=== PATIENT | female | born 1970 | race Two or more races ===

== ENCOUNTER 2024-01-12 12:13 | Outpatient (CLI) | payer OTHER, SELFPAY ==
--- NOTE | ~2024-01-12 | MM_ITS ---
EXAMINATION: MM screening zita BI w kayleigh HISTORY: Screening TECHNIQUE: Craniocaudal and mediolateral oblique 3-D tomosynthesis images were obtained and synthetic 2-D images were generated. CAD analysis was submitted and interpreted. COMPARISON: No prior mammogram is available for comparison at this institution. BREAST PARENCHYMAL COMPOSITION: Not dense: There are scattered areas of fibroglandular density. FINDINGS: There are bilateral nodular asymmetries in both breasts. There are no suspicious calcificat ions or architectural distortion. IMPRESSION: 1. Bilateral breast asymmetries. 2. Additional mammographic views and possible breast ultrasound are recommended. BI-RADS Category 0: Incomplete: Needs additional imaging evaluation. Reviewed, dictated and finalized at location B. IMPRESSION: 1. Bilateral breast asymmetries. 2. Additional mammographic views and possible breast ultrasound are recommended . BI-RADS Category 0: Incomplete: Needs additional imaging evaluation.
== END 2024-01-12 12:14 ==
PROVIDERS: PCP Obstetrics & Gynecology Gynecology; Visit Provider Family Medicine
DX: Z12.31 Encounter for screening mammogram for malignant neoplasm of breast (principal); N64.89 Other specified disorders of breast
CPT/HCPCS: 77063; 77067

== ENCOUNTER 2024-08-10 09:25 | Outpatient (CLI) | payer OTHER, SELFPAY ==
--- NOTE | ~2024-08-10 | MMUS_ITS ---
EXAMINATION: MM diagnostic zita BI w kayleigh, US breast RT limited HISTORY: Six-month follow-up of right breast mass, left breast pain TECHNIQUE: 3-D tomosynthesis images of the breasts were performed and synthetic 2-D images were gener ated. CAD analysis was submitted and interpreted. High resolution limited right breast ultrasound was performed. COMPARISON: 02/02/2024, 01/12/2024 BREAST PARENCHYMAL COMPOSITION:Not Dense. There are scattered areas of fibroglandular density. FINDINGS: MAMMOGRAPHIC FINDINGS: Stable 6 mm ovoid mass at the lower, slightly outer right breast posteriorly. Stable parenchymal appe arance of the left breast, without suspicious mass or distortion. No suspicious microcalcification ei ther breast. ULTRASOUND: At the 8:00 position right breast, 8 cm from nipple, there is a 7 x 6 x 8 mm hypoechoic mass, circums cribed. No posterior shadowing. At the 6:00 position right breast, 3 cm, nipple, there is an 8 x 6 x 3 mm ovoid hypoechoic circumscribed mass, wider than tall. No posterior shadowing. IMPRESSION: Subcentimeter probable benign masses at the 8:00 position right breast and 6:00 position right breas t, as detailed above. Six-month follow-up ultrasound recommended to assure continued stability. BI-RADS category 3, probably benign findings. Reviewed, dictated and finalized at [facility]. . PAYROLL MANAGER IMPRESSION: Subcentimeter probable benign masses at the 8:00 position right breast and 6:0 0 position right breast, as detailed above. Six-month follow-up ultrasound sin mmended to assure continued stability. BI-RADS category 3, probably benign findings.
== END 2024-08-10 09:26 | disposition home or self-care (01) ==
LOC: MICIMG 09:26
PROVIDERS: PCP Family Medicine; Visit Provider Nurse Practitioner
DX: R92.8 Other abnormal and inconclusive findings on diagnostic imaging of breast (principal)
CPT/HCPCS: 76642; 77062; 77066; G0279

== ENCOUNTER 2024-10-17 09:38 | Outpatient (CLI) | payer OTHER, SELFPAY ==
--- NOTE | ~2024-10-17 | MR_ITS ---
MR breast BI wo/w con 10/17/2024 10:53 DRAY DRIVER INDICATION: Abnormal findings on previous diagnostic imaging. TECHNIQUE: MRI of the breasts perform using standard protocol pre-and post IV contrast with the follo wing sequences: Axial T2 STIR, axial T1, axial vibrant T1 with fat suppression precontrast and multip hasic postcontrast. 12 cc MultiHance administered intravenously. COMPARISON: Comparison to multiple prior studies sequentially, with oldest reviewed study dated 01/11. FINDINGS: The breasts contain scattered fibroglandular tissue. There are no abnormalities on the prec ontrast sequences. There is minimal background parenchymal enhancement. No enhancing lesions followi ng contrast administration. No areas of enhancement meeting threshold criteria on CAD analysis. No evidence of signal abnormalities in the axillary or internal mammary node distributions. LEFT BREAST: No signal abnormalities on precontrast sequences. There is minimal background parenchym al enhancement. No enhancing lesions following contrast administration. No areas of enhancement me eting threshold criteria on CAD analysis. No evidence of signal abnormalities in the axillary or in ternal mammary node distributions.] IMPRESSION: 1: Right breast: Negative. No evidence of malignancy. BI-RADS category 1. Recommend annual mammo graphy follow-up. 2: Left breast: Negative. No evidence of malignancy. BI-RADS category 1. Recommend annual mammogr aphy follow-up. Follow-up MRI may be useful for supplementing mammographic evaluation as clinically indicated. Reviewed, dictated and finalized at location A. DRIVER IMPRESSION: 1: Right breast: Negative. No evidence of malignancy. BI-RADS category 1. Recommend annual mammography follow-up. 2: Left breast: Negative. No evidence of malignancy. BI-RADS category 1. Re commend annual mammography follow-up. Follow-up MRI may be useful for supplementing mammographic evaluation as clinic ally indicated.
== END 2024-10-17 09:39 | disposition home or self-care (01) ==
PROVIDERS: PCP Family Medicine; Visit Provider Nurse Practitioner
DX: R92.8 Other abnormal and inconclusive findings on diagnostic imaging of breast (principal)
CPT/HCPCS: 77049; A9577; C8908

== ENCOUNTER 2024-11-16 11:02 | Outpatient (CLI) | payer OTHER, SELFPAY ==
--- OUTSIDE RECORDS SUMMARY | 2024-11-16 11:08 | XMS_ITS | Clinical Summary ---
Author Organization [facility] Address [address] [facility] [place] [address] Care Team Providers Care Paint Booth Operator Name Role Phone Unavailable Primary Care Provider Unavailabl e Source Comments [facility],non-owned Affiliates and Associated Physician Practices is amultiple site organization consisting of ambulatory clinics and hospital sitesin [place], [place], [place] and [place]. This disclosure is being madepursuant to the Care Everywhere program and may not contain all information available regarding this patient. Last updated 18.[facility] Allergies No known active allergies Medications Be aware that medications may not be up to date on this document. Always verify current medications with the patient. No known medications Social History Tobacco Use Types Packs/Day Years Used Date Smoking Tobacco: Never Sex and Gender Information Value Date Recorded Sex Assigned at Not on file Gender Identity Not on file Sexual Orientation Not on file Last Filed Vital Signs Vital Sign Reading Time Taken Comments Blood Pressure 98/62 02/16/2017 10:03 AM CDT Pulse 99 02/16/2017 10:03 AM CDT Temperature 37 C (98.6 F) 02/16/2017 10:03 AM CDT Respiratory Rate 17 02/16/2017 10:03 AM CDT Oxygen Saturation - - Inhaled Oxygen Concentration - - Weight 59 kg (130 lb) 02/16/2017 10:03 AM CDT Height 160 cm (5' 3 ) 02/16/2017 10:03 AM CDT Body Mass Index 23.03 02/16/2017 10:03 AM CDT Plan of Treatment Health Maintenance Due Date Last Done Comments COLOGUARD (AGES 45-75) - COL ON CA SCREENING 1969 COLON MONITORING 1969 COLONOSCOPY - COLON CA SCREENING 1969 CT COLONOGRAPHY - COLON CA SCREENING 1969 Colorectal Cancer Screening 1969 FIT - COLON CA SCREENING 1969 FLEX SIG - COLON CA SCREENING 1969 LIPID TESTING 1969 MAMMOGRAM 1969 PAP SMEAR 1969 HIV SCREENING 1984 HEPATITIS C SCREENING 07/03/1987 DTAP/TDAP/TD VACCINES (1 - Tdap) 1988 HEPATITIS B VACCINE (1 of 3 - 19+ 3-dose series) 1988 PNEUMOCOCCAL VACCINE 50+ (1 of 1 - PCV) 2019 ZOSTER VACCINE (1 of 2) 2019 COVID-19 VACCINE ( - 2023-2 5 season) 2024 INFLUENZA VACCINE (#1) 2024 DEPRESSION SCREENING 09/28/2024 HIB VACCINE Aged Out No longer eligi ble based on patient's age to complete this topic HPV VACCINE Aged Out No longer eligi ble based on patient's age to complete this topic MENINGOCOCCAL (Group B) VACCINE Aged Out No longer eligible based on patient's age to complete this topic MENINGOCOCCAL VACCINE Aged Out No rashawn olinda eligible based on patient's age to complete this topic PNEUMOCOCCAL VACCINE Aged Out No long er eligible based on patient's age to complete this topic Elyssa Edwards Personal/Famil y Self 1970 [address] [place] [address]
--- OUTSIDE RECORDS SUMMARY | 2024-11-16 11:08 | XMS_ITS | Encounter Summary ---
Author Organization [facility] Address [address] [place] [address] Care Team Providers Care Fruit Cutter Name Role Phone Unavailable Primary Care Provider Unavailabl e Encounter Details Date Type Department Care Team (Late st Contact Info) Description 05/16/2024 Lab Requisition [facility] - DermPath Lab [address] [facility] [facility] [place] [id number] Hanny Gleason DO [address] [facility] 3 [place] [address] Social History Tobacco Use Types Packs/Day Years Used Date Smoking Tobacco: Never Sex and Gender Information Value Date Recorded Sex Assigned at Not on file Gender Identity Not on file Sexual Orientation Not on file documented as of this encounter Plan of Treatment Not on file documented as of this encounter Procedures Procedure Name Priority Date/Time Associated Diagnosis Comments DERMATOPATHOLOGY Routine 05/16/2024 11:3 6 AM CDT documented in this encounter Results * DERMATOPATHOLOGY (05/16/2024 11:36 AM CDT) Case Report Dermatopathology Report Case: [id number] Authorizing Provider: Hanny Gleason DO Collected: 05/16/2024 11:36 AM Ordering Location: [facility] - Received: 05/17/2024 11:01 AM DermPath Lab Pathologist: Denice Novak MD Specimen: Skin, left flank 4 3:24 PM CDT DERMATOPATHOLOGY LABORATORY Final Diagnosis Specimen A. SKIN, left flank: DERMAL SCAR RESIDUAL MELANOCYTIC PROLIFERATION NOT IDENTIFIED (L90.5) 4 3:24 PM CDT DERMATOPATHOLOGY LABORATORY Clinical History OSIRIS Prolif bx proven Please check margins/prior biopsy 3:24 PM CDT DERMATOPATHOLOGY LABORATORY Gross Description Specimen A: Received is one formalin filled container labeled with the patient's name and designated left flank. The specimen consists of a non-oriented ellipse of skin measuring 39w93a5 mm. The epidermal surface is unremarkable. The margin is inked green. The 12 o'clock and 6 o'clock tips are submitted in cassette 1. The remainder of the ellipse is serially sectioned and submitted in cassette 2. Jar 0. 3:24 PM CDT DERMATOPATHOLOGY LABORATORY Microscopic Description Specimen A. SKIN, left flank: There are fibroblasts and collagen bundles oriented parallel to the skin surface. There are elongated blood vessels, some of which are oriented perpendicular to the skin surface. No residual melanocytic proliferation is identified. 3:24 PM CDT DERMATOPATHOLOGY LABORATORY Disclaimer An external and internal positive and negative controls are appropriate for the histochemical, immunohistochemical and immunofluorescence stain(s) in this case (if any), except where stated explicitly. The performance characteristics of the stain(s) cited in this report were developed and its performance characteristic determined by the Dermatopathology Laboratory at [facility], directed by Dr. Elsy Grady. These tests need not be, and therefore are not, approved by the [place] Food and Drug Administration. The tests are used for clinical purposes. Billing Codes Specimen Charges Stain Charges 47517 1 4 3:24 PM CDT DERMATOPATHOLOGY LABORATORY Embedded Images 3:24 PM CDT DERMATOPATHOLOGY LABORATORY Pathology/Cytolo gy TISSUE SPECIMEN FROM SKIN / Unknown 05/16/2024 11:36 AM CDT 05/17/2024 11:01 AM CDT Hanny Gleason DO LAB - PATHOLOGY/C YTOLOGY ORDERABLES DERMATOPATHOLOGY LABORATORY [facility] - Department of Dermatology [address], [address] [phone] documented in this encounter Visit Diagnoses Not on filedocumented in this encounter
--- OUTSIDE RECORDS SUMMARY | 2024-11-16 11:08 | XMS_ITS | Encounter Summary ---
Author Organization [facility] Address [address] [place] [address] Care Team Providers Care Onion Tier Name Role Phone Unavailable Primary Care Provider Unavailabl e Encounter Details Date Type Department Care Team (Late st Contact Info) Description 03/03/2023 Lab Requisition [facility] - DermPath Lab [address] [facility], [facility] [place] [phone] Hanny Gleason DO [address] [facility] [address] [place] [address] Social History Tobacco Use Types Packs/Day Years Used Date Smoking Tobacco: Never Sex and Gender Information Value Date Recorded Sex Assigned at Not on file Gender Identity Not on file Sexual Orientation Not on file documented as of this encounter Plan of Treatment Not on file documented as of this encounter Procedures Procedure Name Priority Date/Time Associated Diagnosis Comments DERMATOPATHOLOGY Routine 03/03/2023 10:3 0 AM CDT documented in this encounter Results * DERMATOPATHOLOGY (03/03/2023 10:30 AM CDT) Case Report Dermatopathology Report Case: [id number] Authorizing Provider: Hanny Gleason DO Collected: 03/03/2023 10:30 AM Ordering Location: [facility] DermPath Lab Received: 03/03/2023 03:39 PM Pathologist: Kimberlee Valencia MD Specimen: Skin, ant neck 3 2:59 PM CDT DERMATOPATHOLOGY LABORATORY Final Diagnosis Specimen A. SKIN, ant neck: INTRADERMAL MELANOCYTIC NEVUS (D22.4) 3 2:59 PM CDT DERMATOPATHOLOGY LABORATORY Clinical History NEVUS, Irritated 3 2:59 PM CDT DERMATOPATHOLOGY LABORATORY Gross Description Specimen A: Received is one formalin filled container labeled with the patient's name and designated ant neck. The specimen consists of a shave biopsy measuring 3x1x2 mm. Jar 0. 3 2:59 PM CDT DERMATOPATHOLOGY LABORATORY Microscopic Description Specimen A. SKIN, ant neck: There are nests of cytologically bland melanocytes within the dermis that mature with depth. 3 2:59 PM CDT DERMATOPATHOLOGY LABORATORY Disclaimer An external and internal positive and negative controls are appropriate for the histochemical, immunohistochemical and immunofluorescence stain(s) in this case (if any), except where stated explicitly. The performance characteristics of the stain(s) cited in this report were developed and its performance characteristic determined by the Dermatopathology Laboratory at [facility], directed by Dr. Elsy Grady. These tests need not be, and therefore are not, approved by the [place] Food and Drug Administration. The tests are used for clinical purposes. Billing Codes Specimen Charges Stain Charges 61452 1 3 2:59 PM CDT DERMATOPATHOLOGY LABORATORY Embedded Images 3 2:59 PM CDT DERMATOPATHOLOGY LABORATORY Pathology/Cytolo gy TISSUE SPECIMEN FROM SKIN / Unknown 03/03/2023 10:30 AM CDT 03/03/2023 3:39 PM CDT Hanny Gleason DO LAB - PATHOLOGY/C YTOLOGY ORDERABLES DERMATOPATHOLOGY LABORATORY [facility] - Department of Dermatology [address], [address] [phone] documented in this encounter Visit Diagnoses Not on filedocumented in this encounter
--- OUTSIDE RECORDS SUMMARY | 2024-11-16 11:08 | XMS_ITS | Referral Summary ---
Author Organization [facility] Address [address] [facility] [place] [address] Care Team Providers Care Softlines Supervisor Name Role Phone Unavailable Primary Care Provider Unavailabl e Source Comments [facility],non-owned Affiliates and Associated Physician Practices is amultiple site organization consisting of ambulatory clinics and hospital sitesin [place], [place] and [place]. This disclosure is being madepursuant to the Care Everywhere program and may not contain all information available regarding this patient. Last updated 18.[facility] Allergies No known active allergies Medications Be [...] 02/16/2017 10:03 AM CDT Plan of Treatment Not on file Elyssa Edwards Personal/Famil y Self 1970 [place] [address]
--- OUTSIDE RECORDS SUMMARY | 2024-11-16 11:08 | XMS_ITS | Encounter Summary ---
Author Organization [facility] Address [address] [facility] [place] [address] Care Team Providers Care Recovery Engineer Name Role Phone Unavailable Primary Care Provider Unavailabl e Encounter Details Date Type Department Care Team (Late st Contact Info) Description 03/21/2024 Lab Requisition [facility] - DermPath Lab [address] [facility] [place] [phone] Hanny Gleason DO [address] [facility] [address] [place] [address] Social History Tobacco Use Types Packs/Day Years Used Date Smoking Tobacco: Never Sex and Gender Information Value Date Recorded Sex Assigned at Not on file Gender Identity Not on file Sexual Orientation Not on file documented as of this encounter Plan of Treatment Not on file documented as of this encounter Procedures Procedure Name Priority Date/Time Associated Diagnosis Comments DERMATOPATHOLOGY Routine 03/21/2024 9:53 AM CDT documented in this encounter Results * DERMATOPATHOLOGY (03/21/2024 9:53 AM CDT) Case Report Dermatopathology Report Case: [id number] Authorizing Provider: Hanny Gleason DO Collected: 03/21/2024 09:53 AM Ordering Location: [facility] - Received: 03/22/2024 01:06 PM DermPath Lab Pathologist: Niki Evans MD Specimen: Skin, left flank 4:44 PM CDT DERMATOPATHOLOGY LABORATORY Final Diagnosis Specimen A. SKIN, left flank: COMPOUND MELANOCYTIC PROLIFERATION, INFLAMED; PRESENT AT MARGIN (D48.5) (see microscopic description and comment) 4:44 PM T DERMATOPATHOLOGY LABORATORY Clinical History Nevus r/o atypia 4:44 PM T DERMATOPATHOLOGY LABORATORY Gross Description Specimen A: Received is one formalin filled container labeled with the patient's name and designated left flank. The specimen consists of a shave biopsy measuring 7xx1 mm. Jar 0. 4:44 PM T DERMATOPATHOLOGY LABORATORY Microscopic Description Specimen A. SKIN, left flank: Sections show a compound melanocytic proliferation. There is a lentiginous proliferation of melanocytes between irregular nests. Scattered melanocytes show evidence of upward migration within the epidermis. In the dermis there are irregular nests of melanocytes. MART-1/Melan-A immunohistochemical stain highlights the melanocytes as above. There is a lymphohistiocytic infiltrate within the dermis. This lesion is present at the margin of the specimen. COMMENT: Because this lesion is present at the margin of the specimen, symmetry and circumscription can not be evaluated. Therefore, a complete but conservative re-excision is recommended to evaluate this lesion in its entirety. This case was also reviewed by Dr. Klarissa Valencia who agrees with the diagnosis. 4:[address] [facility] DERMATOPATHOLOGY LABORATORY Disclaimer An external and internal positive and negative controls are appropriate for the histochemical, immunohistochemical and immunofluorescence stain(s) in this case (if any), except where stated explicitly. The performance characteristics of the stain(s) cited in this report were developed and its performance characteristic determined by the Dermatopathology Laboratory at [facility], directed by Dr. Elsy Grady. These tests need not be, and therefore are not, approved by the [place] Food and Drug Administration. The tests are used for clinical purposes. Billing Codes Specimen Charges Stain Charges 00548 1 55310 1 4:44 PM CDT DERMATOPATHOLOGY LABORATORY Embedded Images 4:44 PM CDT DERMATOPATHOLOGY LABORATORY Pathology/Cytolo gy TISSUE SPECIMEN FROM SKIN / Unknown 03/21/2024 9:53 AM CDT 03/22/2024 1:06 PM CDT Hanny Gleason DO LAB - PATHOLOGY/C YTOLOGY ORDERABLES DERMATOPATHOLOGY LABORATORY [facility] - Department of Dermatology [facility] [address] [place] [address], [address] [phone] documented in this encounter Visit Diagnoses Not on filedocumented in this encounter
--- OUTSIDE RECORDS SUMMARY | 2024-11-16 11:08 | XMS_ITS | Patient Health Summary ---
Author Organization [facility] Address [address] [facility] [place] [address] Care Team Providers Care Metal Base Blocker Name Role Phone Unavailable Primary Care Provider Unavailabl e Note from [facility],non-owned Affiliates and Associated Physician Practices is amultiple site organization consisting of ambulatory clinics and hospital sitesin [place], [place], [place] and [place]. This disclosure is being madepursuant to the Care Everywhere program and may not contain all informatio navailable regarding this patient. Last updated 18.[facility] Allergies No known active allergies Medications Be [...] Mass Index 23.03 02/16/2017 10:03 AM CDT Procedures * DERMATOPATHOLOGY(Performed 05/16/2024) * DERMATOPATHOLOGY(Performed 03/21/2024) * DERMATOPATHOLOGY(Performed 03/03/2023) * DERMATOPATHOLOGY(Performed 02/26/2022) Results * DERMATOPATHOLOGY (05/16/2024 11:36 AM CDT) Only the most recent of4 resultswithin the time period is included. Case Report Dermatopathology Report Case: [id number] Authorizing Provider: Hanny Gleason DO Collected: 05/16/2024 11:36 AM Ordering Location: [facility] - Received: 05/17/2024 11:01 AM DermPath Lab Pathologist: Denice Novak MD Specimen: Skin, left flank 3:24 PM CDT DERMATOPATHOLOGY LABORATORY Final Diagnosis Specimen A. SKIN, left flank: DERMAL SCAR RESIDUAL MELANOCYTIC PROLIFERATION NOT IDENTIFIED (L90.5) 3:24 PM CDT DERMATOPATHOLOGY LABORATORY Clinical History OSIRIS Prolif bx proven Please check margins/prior biopsy 3:24 PM CDT DERMATOPATHOLOGY LABORATORY Gross Description Specimen A: Received is one formalin filled container labeled with the patient's name and designated left flank. The specimen consists of a non-oriented ellipse of skin measuring 95w87w8 mm. The epidermal surface is unremarkable. The [...] characteristic determined by the Dermatopathology Laboratory at [facility], directed by Dr. Elsy Grady. These tests need not be, and therefore are not, approved by the [place] Food and Drug Administration. The tests are used for clinical purposes. Billing Codes Specimen Charges Stain Charges 49562 1 4 3:24 PM CDT DERMATOPATHOLOGY LABORATORY Embedded Images 4 3:24 PM CDT DERMATOPATHOLOGY LABORATORY Pathology/Cytolo gy TISSUE SPECIMEN FROM SKIN / Unknown 05/16/2024 11:36 AM CDT 05/17/2024 11:01 AM CDT Hanny Gleason DO LAB - PATHOLOGY/C YTOLOGY ORDERABLES DERMATOPATHOLOGY LABORATORY [facility] - Department of Dermatology [facility] [address] [place] [address], [address] [phone]
--- OUTSIDE RECORDS SUMMARY | 2024-11-16 11:08 | XMS_ITS | Clinical Summary ---
Author Organization [facility] Address [address] [place] [id number] Care Team Providers Care Manager Php Name Role Phone Kathy Martinez Primary Care Provider [phone] Family History Medical History Relation Comments Breast Cancer Maternal Grandmother Breast Cancer Paternal Aunt Relation Status Comments Maternal Grandmother Paternal Aunt Alive Social History Tobacco Use Types Packs/Day Years Used Date Smoking Tobacco: Never Assessed Comments Unknown Sex and Gender Information Value Date Recorded Sex Assigned at Not on file Legal Sex Female 12:59 PM CDT Gender Identity Not on file Sexual Orientation Not on file Plan of Treatment Health Maintenance Due Date Last Done Comments Cervical Cancer Screening Pa p Smear (Age 30 to 64) Every 3 Years 1969 Colorectal Cancer Screening Colonoscopy (10 Years) 1969 Annual Physical 1972 Hepatitis C 1987 DTaP, Tdap and Td Vaccines ( 1 - Tdap) 1988 Hepatitis B Vaccines (1 of 3 - 19+ 3-dose series) 1988 Cervical Cancer Screening Pa p with HPV Testing (Age 30 to 64) Every 5 Years 1999 Cervical Cancer Screening with HPV 1999 Zoster Vaccines (1 of 2) 2019 COVID-19 Vaccine (2023-2 5 season) 2024 Influenza Adult (#1) 2024 Mammogram Screening 02/01/2026 02/02/2024 Meningococcal B Vaccine Aged Out No l onger eligible based on patient's age to complete this topic Meningococcal Vaccine Aged Out No rashawn olinda eligible based on patient's age to complete this topic Pneumococcal Vaccine: Pediat rics (0 to 5 Years) and At-Risk Patients (6 to 64 Years) Aged Out No longer eligi ble based on patient's age to complete this topic RSV Immunizations Under 20 Months Aged Out No longer eligible based on patient's age to complete this topic Procedures Procedure Name Priority Date/Time Associated Diagnosis Comments MG ESVIN SHOEMAKER DIGI Routine 02/02/2024 1:31 PM CDT Other abnormal and inconclusive findings on diagnostic imaging of breast from Last 3 Months or Most Recently Relevant to Health Maintenance Results * MG ESVIN Carver RAMSEY BILAT DIGI (02/02/2024 1:31 PM CDT) Anatomical Region Laterality Modality Breast Bilateral Mammography 02/02/2024 1:56 PM CDT Impressions 02/02/2024 2:10 PM CDT ===== IMPRESSION: ===== 1. Probably benign circumscribed mass right breast. Assessment: ACR BI-RADS CATEGORY 3 - PROBABLY BENIGN FINDING(S) Recommendation: 1: Follow-up diagnostic mammogram and ultrasound right in 6 months Comments: Ordered By: KATHY MARTINEZ Interpreted By: Tr Krueger, 02/02/2024 1:56 PM Narrative 02/02/2024 2:10 PM CDT Examination: Diagnostic bilateral mammogram and right breast ultrasound [id number] Exam Date/Time: 02/02/2024 1:07 PM Reason For Exam: Bilateral breast asymmetries Comparison: Outside facility study, 01/12/2024 Technique: Bilateral diagnostic mammography and right breast ultrasound including sonographic grayscale images projections targeted in the region of interest. Doppler used to assess vasculature. 3D tomographic images were obtained. Tissue density: The breast tissue contains scattered fibroglandular densities. Findings: Mammogram: Right upper outer quadrant asymmetry resolves with spot compression, compatible normal overlapping breast tissue. Right posterior outer breast mass is circumscribed and ovoid and persist with spot compression. Left upper and outer asymmetries resolve with spot compression, compatible with normal overlapping tissue. Rightbreast ultrasound: 8:00 position 8 cm from the nipple: Ovoid, circumscribed, homogeneously hypoechoic mass measures 1.1 x 0.7 x 0.2 cm. This is probably benign. Kathy Martinez DO MAMMO Final Result from Last 3 Months or Most Recently Relevant to Health Maintenance Insurance Divided [facility] Care Teams Manager Php Relationship Specialty Start Date End Date Kathy Martinez DO [address] [place] [address] PCP - General FAMILY PRACTICE 01/15/24
[2024-11-16 20:28] LABS: Strep Group A RT-PCR NOT DETECTED (Negative)
== END 2024-11-16 11:03 | disposition home or self-care (01) ==
LOC: ANHGOSHLAB 11:03
PROVIDERS: PCP Family Medicine; Visit Provider Nurse Practitioner
DX: J02.9 Acute pharyngitis, unspecified (principal)
CPT/HCPCS: 87651

== ENCOUNTER 2025-02-08 10:26 | Outpatient (CLI) | payer OTHER, SELFPAY ==
--- NOTE | ~2025-02-08 | US_ITS ---
US breast RT limited 02/08/2025 11:11 Indication: Follow-up right breast masses. Procedure: High-resolution Limited ultrasound of the right breast Comparison: 08/08/2024 Findings: At 6:00, 3 cm from the nipple there is an oval hypoechoic parallel oriented mass with circu mscribed margins, no posterior features and no internal vascularity measuring 8 x 7 times compared wi th 8 x 6 x 3 mm on prior examination. At 8:00, 8 cm from the nipple there is a slightly irregular sha ped hypoechoic mass measuring 9 x 8 x 4 mm compared with 8 x 6 x 7 mm on prior examination. Morpholog y appears unchanged. No significant posterior features or internal vascularity. Impression: 1: Stable likely benign right breast masses at 6:00 and 8:00 positions of the right breast. BI-RADS CATEGORY 3-PROBABLY BENIGN FINDING RECOMMENDATION: Six-month follow-up screening bilateral mammogram and Limited right breast ultrasound recommended. Reviewed, dictated and finalized at location A. Impression: 1: Stable likely benign right breast masses at 6:00 and 8:00 positions of the r ight breast. BI-RADS CATEGORY 3-PROBABLY BENIGN FINDING RECOMMENDATION: Six-month follow-up screening bilateral mammogram and Limited r ight breast ultrasound recommended.
== END 2025-02-08 10:27 | disposition home or self-care (01) ==
LOC: MICIMG 10:27
PROVIDERS: PCP Family Medicine; Visit Provider Nurse Practitioner
DX: R92.8 Other abnormal and inconclusive findings on diagnostic imaging of breast (principal); N63.15 Unspecified lump in the right breast, overlapping quadrants; N63.13 Unspecified lump in the right breast, lower outer quadrant
CPT/HCPCS: 76642

== ENCOUNTER 2025-05-02 13:43 | Outpatient (CLI) | payer OTHER, SELFPAY ==
--- NOTE | ~2025-05-02 | DEXA_ITS ---
Bone Density Report Name: MARCO PENA Age: 54 Sex: Female Ethnicity: White Date of : 1970 Indication: postmenopausal; screening for osteoporosis; Referring Provider: OTTO, CASTILLO Study: Bone densitometry was performed. Exam Date: May 02, 2025 Accession number: [id number] Bone Density: Region BMD T-score Z-score Classification AP Spine(L1-L4) 0.848 -1.8 -0.7 Osteopenia Femoral Neck (Left) 0.659 -1.7 -0.6 Osteopenia Total Hip (Left) 0.735 -1.7 -1.0 Osteopenia Femoral Neck (Right) 0.658 -1.7 -0.6 Osteopenia Total Hip (Right) 0.754 -1.5 -0.8 Osteopenia Total Hip Mean 0.744 -1.6 -0.9 Osteopenia World Health Organization criteria for BMD impression classify patients as: Normal (T-score at or above -1.0), Osteopenia (T-score between -1.0 and -2.5), or Osteoporosis (T-score at or below -2.5). 10-year Fracture Risk(1): Major Osteoporotic Fracture 7.2% Hip Fracture 0.7% Reported Risk Factors: [place] (), Neck BMD=0.659, BMI=23.6 (1) FRAX(R) Version 3.08. Fracture probability calculated for an untreated patient. Fracture probability may be lower if the patient has received treatment. Clinical Information Provided by Patient: Has used the following medications: Vitamin D Patient maximum height was 63 Menopause Age: 43 Does not regularly consume dairy products Onset of menses at age 12 Number of children 4 Impression: The patient has low bone mass, based on the Total Spine T-score. The patient has an estimated ten-year risk of hip fracture of 0.7% and an estimated ten-year risk of major fracture of 7.2%, based on the WHO FRAX algorithm. Discussion: BONE DENSITY IS LOW AT ONE OR MORE SKELETAL SITES. This patient's lowest T-score is low at one or more skeletal sites. It meets the World Health Organization's (WHO) criteria for ?low bone mass? (T-score between -1.0 and -2.5). The patient's 10-year risk of fracture as calculated by FRAX is less than the threshold where pharmacological therapy is recommended by the National Osteoporosis Foundation (NOF). However, all treatment decisions require clinical judgment and consideration of individual patient factors, including patient preferences, comorbidities, previous drug use, risk factors not captured in the FRAX model (e.g., frailty, falls, vitamin D deficiency, increased bone turnover, interval significant decline in bone density) and possible under or overestimation of fracture risk by FRAX. The patient should follow a healthful lifestyle (good nutrition with adequate calcium and vitamin D, and appropriate weight-bearing exercise). Follow-Up: Consider repeating this study in 2 to 3 years to reassess this patient's status, or sooner if there is some new clinical indication. Reported by: NANCY on 05/02/2025 2:02:00 PM. Reviewed, dictated and finalized at location A.
== END 2025-05-02 13:44 | disposition home or self-care (01) ==
LOC: MICIMG 13:44
PROVIDERS: PCP Family Medicine; Visit Provider Nurse Practitioner
DX: Z13.220 Encounter for screening for lipoid disorders (principal); M85.89 Other specified disorders of bone density and structure, multiple sites; Z78.0 Asymptomatic menopausal state
CPT/HCPCS: 77080

== ENCOUNTER 2025-08-14 08:36 | Outpatient (CLI) | payer OTHER, SELFPAY ==
--- NOTE | ~2025-08-14 | MMUS_ITS ---
EXAMINATION: MM diagnostic zita BI w kayleigh, US breast RT limited INDICATION: 55-year old female; BI-RADS 3, short-term follow-up probably benign right breast findings. Screening left breast. COMPARISON: 02/08/2025 through 05/13/2024 TECHNIQUE: Digital breast tomosynthesis True lateral, CC and MLO views of BILATERAL breasts were obtained with computer-aided detection to assist in interpretation of the study. MAMMOGRAM FINDINGS: There are scattered areas of fibroglandular density. The focal asymmetry and mass of concern in the upper outer and inferior lateral at posterior depth respectively in the right breast redemonstrated are unchanged. No new suspicious mass, calcification or architectural distortion to suggest malignancy in either breast. RIGHT BREAST ULTRASOUND FINDINGS: Targeted evaluation of the area of concern was completed. 0.8 cm circumscribed parallel oriented to hypoechoic mass at 6:00 location 3 cm from the nipple in the RIGHT breast redemonstrated is Unchanged. 0.8 cm hypoechoic mass at 8:00 location 8 cm from the nipple in the RIGHT breast redemonstrated is Unchanged. IMPRESSION: Probable Benign RIGHT breast findings are unchanged, demonstrating 18 months stability. No mammographic evidence of malignancy within the left breast. RECOMMENDATION: 6 month follow-up diagnostic RIGHT mammogram and RIGHT breast ultrasound. BI-RADS 3, PROBABLY BENIGN Reviewed, dictated and finalized at location C. OR RESEARCH PROJECT MANAGER IMPRESSION: Probable Benign RIGHT breast findings are unchanged, demonstrating [address] ability[address] No mammographic evidence of malignancy within the left breast. RECOMMENDATION: 6 month follow-up diagnostic RIGHT mammogram and RIGHT breast ultrasound. BI-RADS 3, PROBABLY BENIGN
== END 2025-08-14 08:37 | disposition home or self-care (01) ==
PROVIDERS: PCP Nurse Practitioner; Visit Provider Family Medicine
DX: N63.13 Unspecified lump in the right breast, lower outer quadrant (principal); R92.8 Other abnormal and inconclusive findings on diagnostic imaging of breast
CPT/HCPCS: 76642; 77062; 77066; G0279